=== PATIENT | male | born 1940 | race Caucasian/White ===

== ENCOUNTER 2019-10-20 20:07 | Inpatient (IN) ==
[2019-10-20 20:56] LABS: BASO# 0.03 X1000 (0.0-0.2); BASO% 0.2 % (0.0-0.8); EOS# 0.01 X1000 (0.0-0.7); EOS% 0.1 % (0.0-10.0); HEMATOCRIT 34.5 % (42.0-52.0); HEMOGLOBIN 10.9 g/dL (14.0-18.0); IMM GRAN# 0.16 X1000 (0.0-0.04); IMM GRAN% 0.9 % (0.0-0.5); LYMPH# 0.47 X1000 (1.2-3.4); LYMPH% 2.5 % (20.5-51.1); MCH 30.1 PG (27-31); MCHC 31.6 g/dL (33-37); MCV 95.3 FL (81-99); MONO# 0.32 X1000 (0.11-0.59); MONO% 1.7 % (1.7-9.3); NEUT# 17.46 X1000 (1.4-6.5); NEUT% 94.6 % (42.2-75.2); PLT 315 X1000 (130-400); RBC 3.62 XMIL (4.7-6.1); RDW 14.1 % (11.5-14.5); WBC 18.45 X1000 (4.8-10.8)
--- NOTE | 2019-10-20 20:56 | Diag Imaging Result Doc PS360 ---
EXAM: CT HEAD W/O CONTRAST 10/20/2019 HISTORY: stroke like symptoms TECHNIQUE: This exam was performed using automated exposure control, adjustment of mA or kV according to patient size, and/or use of iterative reconstruction technique. COMMENT: There is a prominent cisterna magna. There is mild generalized cerebral atrophy. There is no evidence of mass effect, bleed, or abnormal extra-axial fluid collection. The visualized paranasal sinuses are clear. The calvarium is intact. IMPRESSION: No evidence of acute intracranial disease. Electronically signed by Adair Ivey 10/20/2019 8:54 PM
[2019-10-20 21:00] LABS: INR 1.15; PROTIME 14.9 Seconds (11.0-16.0)
[2019-10-20 21:01] LABS: PTT 30.6 Seconds (22.3-41.8)
--- NOTE | 2019-10-20 21:18 | Diag Imaging Result Doc PS360 ---
EXAM: CHEST-PORTABLE 10/20/2019 HISTORY: stroke like symptoms TECHNIQUE: AP portable at 0855 COMMENT: There is no evidence of acute cardiac or pulmonary disease. 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 IMPRESSION: Stable chest. Electronically signed by Adair Ivey 10/20/2019 9:15 PM
[2019-10-20 21:24] LABS: ALB/GLOB RATIO 1.8; ALBUMIN 4.1 g/dL (3.5-5.0); CALCIUM 9.3 mg/dL (8.8-10.2); CREATININE 1.4 mg/dL (0.7-1.2); TOTAL BILIRUBIN 0.47 mg/dL (0.20-1.00); TOTAL PROTEIN 6.4 g/dL (6.3-8.3)
[2019-10-20 22:52] LABS: URINE SOURCE CLEAN CATCH
[2019-10-20 23:14] LABS: UR AMPHETAMINES QUAL NONE DETECTED (NONE DETECT); UR BARBITUATES QUAL NONE DETECTED (NONE DETECT); UR BENZODIAZEPIN QUAL NONE DETECTED (NONE DETECT); UR CANNABINOIDS QUAL NONE DETECTED (NONE DETECT); UR COCAINE QUAL NONE DETECTED (NONE DETECT); UR METHADONE QUAL NONE DETECTED (NONE DETECT); UR OPIATES QUAL NONE DETECTED (NONE DETECT); UR OXYCODONE QUAL NONE DETECTED (NONE DETECT); UR PCP QUAL NONE DETECTED (NONE DETECT)
[2019-10-20 23:17] LABS: UR EPITHELIAL CELLS <10 /HPF (<10); URINE BACTERIA NEGATIVE /HPF; URINE RBC <10 /HPF (<10); URINE WBC <10 /HPF (<10)
[2019-10-20 23:26] LABS: BILIRUBIN URINE NEGATIVE (NEGATIVE); BLOOD URINE NEGATIVE (NEGATIVE); COLOR YELLOW; GLUCOSE URINE NEGATIVE (NEGATIVE); KETONE URINE NEGATIVE (NEGATIVE); LEUKOCYTES URINE NEGATIVE (NEGATIVE); NITRITE URINE NEGATIVE (NEGATIVE); PROTEIN URINE 100 mg/dL (NEGATIVE); SP GRAVITY URINE 1.024; TURBIDITY URINE CLEAR (CLEAR); UROBILINOGEN URINE 2 mg/dL (NORMAL)
--- NOTE | 2019-10-20 23:41 | PROVIDER DOCUMENTATION ---
This chart was entered by Santa Willis Scribe, acting as scribe for Gianni Mathis MD. HPI-General Adult - General Chief Complaint: Altered Mental Status Stated Complaint: POSS CVA Time Seen by Provider: 10/20/19 20:11 Source: patient Home Medications: Home Medication List Medication Instructions Recorded Confirmed Last Taken Type Clopidogrel Bisulfate [Plavix] 75 mg PO DAILY 10/20/19 10/20/19 Unknown History Spironolactone 25 mg PO DAILY 10/20/19 10/20/19 Unknown History - History of Present Illness -Gen Adult Nature of Presenting Problems: pt is a 78 yr old male presenting via EMS from home. pt was found in floor beside his chair, confused, slurred speech, pt had vomiting and defecated on himself. pt was last seen normal at 1500, per EMS pt had slurred speech/difficulty speaking initially but resolved during transport. Location of Pain/Injury: reports: none Pain Radiation: reports: no radiation Quality of Pain: reports: none Severity: reports: moderate Onset/Duration: reports: this morning Timing: reports: improving Context/Activities at Onset: reports: light activity Modifying Factors: improves with: nothing Associated Symptoms: reports: diarrhea, dizziness, fatigue, nausea, vomiting, weakness. denies: back/neck pain, chest pain, fever/chills, shortness of breath Similar Symptoms Previously?: No Recently seen or treated by another doctor?: No Review of Systems - Adult - REVIEW OF SYSTEMS - ADULT Constitutional: reports: chills, fever, fatique Eyes: denies: blurred vision, double vision Ears, Nose, Mouth & Throat: reports: no symptoms reported Cardiovascular: denies: chest pain, palpitations, syncope Respiratory: denies: shortness of breath Gastrointestinal: reports: diarrhea, nausea, vomiting. denies: abdominal pain Genitourinary: reports: no symptoms reported Musculoskeletal: reports: no symptoms reported Integumentary: reports: no symptoms reported Neurological: denies: dizziness/vertigo, headache/migraines, syncope Psychiatric: reports: no symptoms reported Endocrine: reports: no symptoms reported Hematologic/Lymphatic: reports: no symptoms reported Allergic/Immunologic: reports: no symptoms reported All Other Systems: Reviewed and Negative Past History - Adult - PAST MEDICAL HISTORY-ADULT Review of Records: reports: Old Records Reviewed, Nursing Assessment Review, Medications Reviewed, Social history reviewed & non-contributory. Major Childhood Illnesses: reports: denies history Cardiovascular: reports: denies history Respiratory: reports: denies history Gastrointestinal: reports: denies history Obstetrical/Gynecological: reports: denies history Genitourinary: reports: denies history Musculoskeletal: reports: denies history Neurological: reports: CVA Endocrine/Immune: reports: denies history Other Conditions: reports: denies history - IMMUNIZATION STATUS Childhood Immunizations: See Nurse Assessment Flu Vaccine: See Nurse Assessment - FAMILY HISTORY Family History: reviewed, not pertinent - SOCIAL HISTORY Smoking: denies Substance Use: denies Living Situation: family Physical Exam-General - PHYSICAL EXAM-ADULT Initial Vital Signs Reviewed: Yes - CONSTITUTIONAL General Appearance: alert, no apparent distress, thin - EYES Eyes: PERRL/EOMI - HEAD, EARS, NOSE, MOUTH & THROAT HENMT: normocephalic/atraumatic, moist mucous membranes, normal ENT inspection - NECK Neck: non-tender, full range of motion, supple, normal inspection - RESPIRATORY Respiratory: chest non-tender, lungs clear, normal breath sounds, no respiratory distress, no accessory muscle use - CARDIOVASCULAR Cardiovascular: normal peripheral pulses, tachycardia - GASTROINTESTINAL (ABDOMEN) Abdominal Exam: normal bowel sounds, non tender, soft - LYMPHATIC Lymphatic: no adenopathy - MUSCULOSKELETAL Back Exam: normal inspection Extremity: normal range of motion, non-tender, normal inspection - SKIN Integumentary: normal color, normal turgor - NEUROLOGIC Neurologic: grossly normal, no motor/sensory deficits. negative: facial droop, focal weakness, motor weakness, sensory deficit - PSYCHIATRIC Psych/Mental Status: normal mood/affect Progress - PLAN OF CARE/RESULTS Progress/Plan/Lab Results: Laboratory Results - last 24 hr 10/20/19 20:11 POC Glucose 88 Orders Category Date Time Status Cardiac Monitoring DIRECTED Care 10/20/19 20:16 Active Finger Stick Blood Sugar (ED) DIRECTED Care 10/20/19 20:16 Active Saline Loc NOW Care 10/20/19 20:16 Active CHEST-PORTABLE [RAD] Stat Exams 10/20/19 20:[address] HEAD W/O CONTRAST [CT] Stat Exams 10/20/19 20:16 Ordered CBC WITH ELECTRONIC DIFF [HEME] Stat Lab 10/20/19 20:16 Uncollected COMPREHENSIVE METABOLIC PANEL [CHEM] Stat Lab 10/20/19 20:16 Uncollected PROTIME WITH INR [COAG] Stat Lab 10/20/19 20:16 Uncollected PTT [COAG] Stat Lab 10/20/19 20:16 Uncollected TROPONIN T Stat Lab 10/20/19 20:16 Uncollected URINALYSIS W/POSS RFLX CULT [URINALYSIS] Stat Lab 10/20/19 20:16 Uncollected URINE DRUG SCREEN Stat Lab 10/20/19 20:16 Uncollected EKG [EKG] Stat Ther 10/20/19 20:16 Ordered Result Diagrams: 10/20/19 20:39 10/20/19 20:39 - EKG 1 Time of EKG reading by physician:: 21:03 EKG Read and Signed by:: Gianni Mathis EKG Interpretation (*Must complete 3 of following elements*): Abnormal (poss lateral infarct-age undetermined) Rate: 100 Rhythm: SR with PACs QRS: RBB [place] Interval: normal - CT/MRI 1 CT Study: Head Impression: Abnormal ( EXAM: CT HEAD W/O CONTRAST 10/20/2019 HISTORY: stroke like symptoms TECHNIQUE: This exam was performed using automated exposure control, adjustment of mA or kV according to patient size, and/or use of iterative reconstruction technique. COMMENT: There is a prominent cisterna magna. There is mild generalized cerebral atrophy. There is no evidence of mass effect, bleed, or abnormal extra-axial fluid collection. The visualized paranasal sinuses are clear. The calvarium is intact. IMPRESSION: No evidence of acute intracranial disease. Electronically signed by Adair Ivey 10/20/2019 8:54 PM 10/20/192053 Interpreting Physician: Adair Ivey MD Dictated Date/Time: 10/20/192051 cc: Gianni Mtahis MD; Maggie Palm) Comparison with other Films: no prior study Departure - Departure Date of Disposition Decision: 10/20/19 Time of Disposition Decision: 23:41 DIAGNOSIS: TIA (transient ischemic attack) Disposition: ADMITTED INPATIENT 09 Certified Medical Emergency: Emergent Condition: Stable Referrals and Follow-Ups: Maggie Palm CRNP [Primary Care Provider] - - Critical Care Note This patient required my direct & personal management of CC.: No Attestation - Physician/ GAMALIEL Attestation Patient care was provided by Advanced Practice Provider:: No The physician spent face to face time with patient:: Yes Advanced Practice Provider documentation review:: Supervising physician onsite and consulted in the evaluation and care of this patient. The physician did have a face to face encounter with the patient. This chart was documented by the indicated scribe, (Santa Willis, Les) and accurately reflects the services I performed and decisions made by me, Gianni Mathis MD, as attested by the provider's signature.
--- NOTE | 2019-10-20 23:59 | EKG Report ---
Test Performed on : 10/20/2019 9:03:45 PM Test Reason : Stroke like symptoms Blood Pressure : / mmHG Vent. Rate : 100 BPM Atrial Rate : 100 BPM P-R Int : 168 ms QRS Dur : 128 ms QT Int : 370 ms P-R-T Axes : 069 196 066 degrees QTc Int : 477 ms Sinus rhythm. with premature atrial complexes. Indeterminate axis Right bundle branch block Possible Lateral infarct , age undetermined Abnormal ECG No previous ECGs available Confirmed by Santiago HODGSON, Kirt ([id number]) on 10/21/2019 8:21:02 AM
[2019-10-21] MEDS ORDERED: TYLENOL PO PRN (02:05)
[2019-10-21] MEDS: NS 1,000 ML IV SCH (03:00)
--- NOTE | 2019-10-21 06:46 | HISTORY AND PHYSICAL ---
PRIMARY CARE PROVIDER: Maggie Palm. CHIEF COMPLAINT: Altered mental status. HISTORY OF PRESENTING ILLNESS: A 78-year-old male, who is brought to the emergency department because he was found on the floor altered. He apparently had some slurred speech. When EMS arrived, he was moderately confused. He was brought to the emergency department. His symptoms started slowly improving. He was seen in the ED and due to suspicion of possible CVA, it was thought that he would need admission for further management. The patient is a poor historian. Most of the history is obtained from his chart from the ER. However at time of my examination, patient was able to deny having any headache, fever, chills, chest pain, shortness of breath, hemoptysis or any weight changes. PAST MEDICAL HISTORY: Previous CVA. PAST SURGICAL HISTORY: None. ALLERGIES: No known drug allergies. CURRENT MEDICATIONS: Include Plavix and spironolactone SOCIAL HISTORY: Denies any history of smoking, alcohol or illicit drug use. FAMILY HISTORY: No history of coronary disease. REVIEW OF SYSTEMS: Fourteen point review of systems listed as in HPI. Other systems negative. PHYSICAL EXAMINATION: GENERAL: The patient is resting comfortably. VITAL SIGNS: Temperature 99.9 degrees, pulse 120, respiration 18, blood pressure 169/98. HEENT: Atraumatic, normocephalic. Extraocular movements intact. PERRLA. NECK: No masses. CHEST: Clear to auscultation. CARDIOVASCULAR: Regular rate and rhythm. ABDOMEN: Soft. Positive bowel sounds. EXTREMITIES: No edema. NEUROLOGIC: He is awake, alert, oriented x2. Strength 5/5 in all extremities. Speech is intact. GENITOURINARY: No bladder distention. SKIN: Warm. LABORATORIES AND STUDIES: WBCs 18.45, hemoglobin 10.9, hematocrit 34.5, platelets 315. Sodium 143, potassium 4.0, chloride 103, CO2 22. BUN is 20, creatinine is 1.4, glucose 105. Troponin 0.010. UA is negative. Chest CT is stable. Chest x-ray stable. Head CT is with no evidence of any acute intracranial disease. ASSESSMENT: This is a 78-year-old, elderly male with a previous history of stroke, who is brought to the emergency department due to patient was found to be altered and having slurring of speech. He apparently had vomited on himself. He is brought to the emergency department. His symptoms seemed to resolve; however, due to his presenting symptoms, he will need admission for further management. 1. Altered mental status. 2. Transient ischemic attack. Will need to rule out cerebrovascular accident. 3. Leukocytosis. PLAN: 1. We will admit patient to medical floor with telemetry. 2. Continue with neuro checks. 3. We will schedule an MRI of the brain. 4. We will continue gentle hydration. 5. We will recheck WBCs. 6. We will put patient on DVT prophylaxis with SCDs. 7. We will continue to follow and reassess. Make further recommendation based on patient's clinical course. cc: Ld Power MD
[2019-10-21] MEDS: ASPIRIN PO SCH (10:24)
[2019-10-21] MEDS: PLAVIX PO SCH (10:24)
[2019-10-21] MEDS: ALDACTONE PO SCH (10:25)
[2019-10-21 10:32] LABS: BASO# 0.03 X1000 (0.0-0.2); BASO% 0.1 % (0.0-0.8); HEMATOCRIT 33.2 % (42.0-52.0); HEMOGLOBIN 10.4 g/dL (14.0-18.0); IMM GRAN# 0.11 X1000 (0.0-0.04); IMM GRAN% 0.4 % (0.0-0.5); LYMPH# 0.92 X1000 (1.2-3.4); LYMPH% 3.5 % (20.5-51.1); MCHC 31.3 g/dL (33-37); MCV 95.7 FL (81-99); MONO# 0.53 X1000 (0.11-0.59); MPV 10.1 FL (7.4-10.4); NEUT# 24.87 X1000 (1.4-6.5); PLT 307 X1000 (130-400); RBC 3.47 XMIL (4.7-6.1); RDW 14.6 % (11.5-14.5); WBC 26.46 X1000 (4.8-10.8)
[2019-10-21 11:05] LABS: CALCIUM 8.7 mg/dL (8.8-10.2); CREATININE 1.3 mg/dL (0.7-1.2); POTASSIUM 4.2 mmol/L (3.5-5.1)
--- NOTE | 2019-10-21 11:41 | Diag Imaging Result Doc PS360 ---
MRI BRAIN W/O CONTRAST - 10/21/2019 INDICATION: R/O stroke COMPARISON: Head CT of 10/20/2019 FINDINGS: There is no area of restricted diffusion. There is mild diffuse cerebral atrophy. No intracranial mass or hemorrhage. There is some mild, patchy periventricular and deep cerebral white matter hyperintensity compatible with chronic microvascular ischemia. Midline structures are unremarkable. IMPRESSION: No acute process. Mild cerebral atrophy and chronic microvascular ischemia. Electronically signed by Ziggy Salgado 10/21/2019 11:38 AM
--- NOTE | 2019-10-21 14:20 | PROGRESS NOTE ---
DATE: 10/21/2019 SUBJECTIVE: This patient is more awake and he is oriented today x2, he is not oriented to time, as per the patient this is 1998. He does not remember how he ended up here in the hospital, he has been confused, his leukocyte count went up from 18 to 26, I placed this patient on antibiotics. It looks like this patient has cellulitis at the level of the legs and probably his hand, he is eating by himself. Pending echocardiogram, I will ask for a hemoglobin A1c, physical therapy, occupational therapy as well. OBJECTIVE: Vital Signs: Temperature 97.9 degrees, pulse 79, respiratory rate 16, blood pressure 118/51, oxygen saturation 96 on 2 L of nasal cannula. HEENT: Head normocephalic, no trauma. PERRLA. Neck: Supple. No JVD. No masses. Central trachea. Chest: Clear to auscultation. No wheezing. No rales. Abdomen: Soft, nontender, nondistended. No hepatosplenomegaly. Extremities: No edema. He has some erythema at the level of the distal legs bilaterally, with some signs of superficial lesions, probably scratch lesions, is warm to palpation, it looks like cellulitis. Neurological: The patient is awake. He is oriented x2. He is not oriented to time. Strength is 5/5 all 4 extremities. Speech is normal. LABORATORY: Today WBC 26.4, hemoglobin 10.4, hematocrit 33.2, platelets 307,000, sodium 140, potassium 4.2, chloride 104, bicarbonate 25, BUN 25, creatinine 1.3, glucose 105, calcium 8.7. ASSESSMENT AND PLAN: 1. Altered mental status, as per his friend, which basically is taking care of him outside the hospital, he states that this patient has been confused for a little bit even though he has been really sharp a few days ago, he seems to be much better today. He is oriented x2. He is eating by himself. I do not see any focal weakness, I asked for an MRI that did not show any acute abnormality, pending echocardiogram. We have been ruling out stroke. 2. Possible transient ischemic attack as above. 3. Lower extremity cellulitis, his leukocyte count has been increasing. I will place this patient right now on doxycycline to cover also Staphylococcus, and I will monitor. He has mild elevation of insulin. He seems to be hydrated. I will continue with the IV fluids but I will stop it during the night. He is eating fine. cc: Eugene Apple MD
[2019-10-21] MEDS: DOXYCYCLINE 100 MG in NS 250 ML IV SCH ×2 (15:46→23:47)
[2019-10-22] MEDS: NS 1,000 ML IV SCH (05:04)
[2019-10-22 07:49] LABS: HEMOGLOBIN A1C 5.3 % (4.8-6.0)
[2019-10-22 07:50] LABS: BASO# 0.04 X1000 (0.0-0.2); BASO% 0.2 % (0.0-0.8); EOS# 0.03 X1000 (0.0-0.7); EOS% 0.2 % (0.0-10.0); HEMATOCRIT 32.3 % (42.0-52.0); HEMOGLOBIN 9.8 g/dL (14.0-18.0); IMM GRAN# 0.04 X1000 (0.0-0.04); IMM GRAN% 0.2 % (0.0-0.5); LYMPH# 3.18 X1000 (1.2-3.4); LYMPH% 19.1 % (20.5-51.1); MCH 29.3 PG (27-31); MCHC 30.3 g/dL (33-37); MCV 96.4 FL (81-99); MONO# 0.91 X1000 (0.11-0.59); MONO% 5.5 % (1.7-9.3); MPV 10.6 FL (7.4-10.4); NEUT# 12.45 X1000 (1.4-6.5); NEUT% 74.8 % (42.2-75.2); PLT 261 X1000 (130-400); RBC 3.35 XMIL (4.7-6.1); RDW 14.7 % (11.5-14.5); WBC 16.65 X1000 (4.8-10.8)
[2019-10-22 07:58] LABS: AGAP 10; BUN 19 mg/dL (8-22); CALCIUM 8.3 mg/dL (8.8-10.2); CHLORIDE 103 mmol/L (98-107); COSMO 277; ESTIMATED GFR > 60; GLUCOSE 86 mg/dL (70-104); POTASSIUM 3.8 mmol/L (3.5-5.1); SODIUM 138 mmol/L (136-145); TCO2 25 mmol/L (25-35)
[2019-10-22] MEDS: ALDACTONE PO SCH (10:19)
[2019-10-22] MEDS: PLAVIX PO SCH (10:19)
[2019-10-22] MEDS: ASPIRIN PO SCH (10:19)
--- NOTE | 2019-10-22 10:29 | ECHO REPORT ---
ORDER DATE: 10/21/2019 ECHOCARDIOGRAPHIC MEASUREMENTS: 1. Septal thickness 0.9 2. Left ventricular internal diameter in diastole 4.2. 3. Posterior wall thickness 0.9. 4. Left ventricular internal diameter in systole 2.5. 5. Aortic root 3.0. 6. Left atrium 3.0. SUMMARY.: 1. Adequate quality study. 2. The aortic valve is trileaflet and opens normally on 2-dimensional images. The peak gradient across the aortic valve is less than 5 mmHg. Mitral, tricuspid and pulmonic valves are without evidence of structural abnormality. The aortic root is normal in size. 3. Normal left ventricular dimensions demonstrated. Estimated left ventricular ejection fraction appears to be at least 65%. No regional wall motion abnormalities are evident. Left atrium, right atrium, and right ventricle are normal in size with grossly preserved right ventricular systolic function. 4. No pericardial effusion. 5. Appearance of inferior vena cava suggests normal central venous pressure. cc: MD Eugene Guillen MD
[2019-10-22 11:21] VITALS: BP 132/71
[2019-10-22] MEDS: DOXYCYCLINE 100 MG in NS 250 ML IV SCH (12:41)
--- NOTE | 2019-10-23 14:43 | DISCHARGE SUMMARY ---
ADMISSION DATE: 10/21/2019 DISCHARGE DATE: 10/22/2019 DISPOSITION: Home. FOLLOW-UP: Ms. Maggie Palm, patient's PCP. CONSULTATION DURING THIS ADMISSION: None. INVASIVE PROCEDURES DONE DURING THIS ADMISSION: None. IMAGING STATUS OF SIGNIFICANCE: 1. A chest x-ray shows stable. 2. A CT scan of the head showed no evidence of acute intracranial disease. 3. An MRI of the brain showed no acute process, mild cerebral atrophy and chronic microvascular ischemia. 4. Echocardiogram showed an ejection fraction of 65% with no regional wall motion abnormalities. ADMISSION DIAGNOSES: 1. Altered mental status. 2. Questionable transient ischemic attack. 3. Leukocytosis. DIAGNOSES AT THE TIME OF DISCHARGE: 1. Altered mental status on admission with no focalization, presumably global encephalopathy. 2. Slurred speech concerning for transient ischemic attack. The patient's MRI was unremarkable for acute ischemic process. 3. Chronic microvascular changes on MRI. 4. Left lower extremity chronic venous stasis with superimposed cellulitis, improved. 5. Clinical volume depletion on admission, resolved. 6. Acute kidney injury, resolved. DISCHARGE MEDICATIONS: 1. Clopidogrel 75 mg p.o. daily. 2. Spironolactone 25 mg p.o. daily. 3. Doxycycline 100 mg b.i.d. PRESENTING COMPLAINT: Altered mental status. HISTORY OF PRESENTING COMPLAINT: Mr. Ramirez is a 78-year-old elderly gentleman, who apparently had previous strokes in the past, came in at this time because they found him on the floor altered and his speech was kind of slurred. This morning, Mr. Ramirez is telling me that he thinks he was just sleeping. In any case, he was brought in. He was confused. He was evaluated and admitted for possible stroke. HOSPITAL COURSE: Mr. Ramirez was admitted to the medical floor under telemonitoring. He underwent stroke workup, including initial CT scan which did not show any bleed, an MRI which did not show any acute diffusion restricted image. He was also evaluated by occupational, as well as physical therapy. Yesterday he was able to do 250 feet with minimum assist. He has been tolerating his diet. He thinks he is stable to be discharged. When he presented, he looked slightly dry. Creatinine was 1.4. He was also gently hydrated throughout the hospital course. This morning, his creatinine is down to 1.0. His A1c is 5.3. His lipid panel is unremarkable. I have reviewed his home medications and we think Mr. Ramirez is now clinically stable to be discharged. I tried reaching out to his contact, Mr. Jose Betancourt; however he did not respond and I left voice message. Mr. Ramirez is stable for discharge. TIME SPENT: The time spent for discharge is 35 minutes. cc: MD Maggie Crawford CRNP
== END 2019-10-22 18:40 | disposition home or self-care (01) | DRG 69 ==
LOC: SUPCPDRO → ED 20:07 → 3N 10-21 01:16 → SUATTDRO 10-21 01:16
PROVIDERS: ATTEND Internal Medicine